=== PATIENT | female | born 1985 | race Caucasian/White ===

== ENCOUNTER 2022-06-23 08:31 | Day surgery (SDC) | payer MEDICAID ==
[~2022-06-23] VITALS: Ht 172.7 cm; Wt 120.1 kg
[~2022-06-23 08:31] MED LIST: AMOXICILLIN 25250 MG PO; AMOXICILLIN 50500 MG PO; IBUPROFEN IB200 MG PO; IMPLANON68 MG ID; LORTAB 5/500 501 TAB PO; METRONIDAZOLE500 MG PO; NORCO 325 MG-51 TAB PO; PRENATAL VITAMI1 TA5 PO
[2022-06-23] MEDS ORDERED: LIDODERM 5% PATC1 EA TP (09:13)
[2022-06-23] MEDS ORDERED: COLESTID 1GM1 G PO (09:13)
[2022-06-23] MEDS ORDERED: VITAMIN D362.5 MC1 PO (09:14)
[2022-06-23] MEDS ORDERED: ONE-A-DAY ESSE1 EACH PO (09:14)
[2022-06-23 09:16] VITALS: BP 135/93; PULSE 73; TEMP 97.4
[2022-06-23 10:55] VITALS: BP 126/88; PULSE 68; TEMP 97
[2022-06-23 11:10] VITALS: BP 123/83; PULSE 60
[2022-06-23 11:25] VITALS: BP 126/83; PULSE 61
--- NOTE | 2022-06-23 11:58 | NUR ---
1055: PATIENT TO BAY 4 VIA CART FROM ENDO SUITE. AMBULATED FROM CART TO RECLINER X2 ASSIST. REPORT RECEIVED FROM ENDO RN. PATIENT ALERT BUT GROGGY AND TEARFUL. VS STABLE. BREATHING EVEN AND UNLABORED PATIENT DENIES FOOD AT THIS TIME. RESTING IN RECLINER. MOM AT BEDSIDE. CALL LIGHT IN REACH. 1100: DR. GUNDERSON IN TO SPEAK WITH PATIENT AT THIS TIME. 1110: VS REMAIN STABLE. PATIENT ALERT AND ORIENTED AT THIS TIME, NO LONGER TEARFUL. PATIENT REQUESTING CRACKERS AND WATER. NO COMPLAINTS AT THIS TIME. MOM REMAINS AT SIDE. CALL LIGHT IN REACH. 1125: VS REMAIN STABLE. PATIENT TOLERATING CRACKERS AND WATER. REQUESTING TO DISCHARGE. MOM REMAINS AT SIDE. CALL LIGHT IN REACH. 1130: DISCHARGE EDUCATION COMPLETED AT THIS TIME. PATIENT STATED UNDERSTANDING OF DISCHARGE INSTRUCTIONS. DISCHARGE PAPERWORK GIVEN TO PATIENT. IV DC'D AT THIS TIME. PATIENT DENIES ANY ASSISTANCE WITH DRESSING. 1140: PATIENT AMBULATED WITH STEADY GAIT FROM RECLINER TO WHEELCHAIR.PATIENT OFF UNIT VIA WHEELCHAIR. PATIENT DISCHARGED TO HOME WITH MOM PER PERSONAL VEHICLE.
== END 2022-06-23 11:40 | disposition home or self-care (01) ==
LOC: SDCO 08:31
DX: K29.70 Gastritis, unspecified, without bleeding (principal); R15.9 Full incontinence of feces; D12.5 Benign neoplasm of sigmoid colon; K62.1 Rectal polyp; Z98.890 Other specified postprocedural states; Z79.899 Other long term (current) drug therapy; Z28.310 Unvaccinated for COVID-19
CPT/HCPCS: J2704; J7120